=== PATIENT | male | born 1985 | race Caucasian/White ===

== ENCOUNTER 2017-07-10 10:49 | Emergency (ER) | payer OTHER ==
[~2017-07-10] VITALS: Ht 177.8 cm; Wt 105.0 kg
[~2017-07-10 10:49] MED LIST: CETI10TA84 PO
[2017-07-10 10:54] VITALS: TEMP 37.3; Ht 177.8 cm; Wt 105.0 kg
[2017-07-10] MEDS ORDERED: IBUPROFEN 600 MG TAB PO STA (11:01)
[2017-07-10] MEDS ORDERED: ALLERGY DROPS SL (11:12)
--- NOTE | 2017-07-10 11:29 | DIAGNOSTIC IMAGING REPORT ---
L SHOULDER MIN 2 VIEWS ROUTINE CLINICAL HISTORY: 31 years-old Male presenting with L shoulder pain, injury during softball. TECHNIQUE: Internal rotation, external rotation, Grashey views of the left shoulder were obtained. COMPARISON: 01/08/2008. FINDINGS: Glenohumeral and acromioclavicular joints congruent. An ossicle is noted superior to the acromioclavicular joint, which was not present in 2007, but appears well corticated and is not consistent with an acute fracture fragment. This may be result of prior injury. No widening of the AC joint. No acute fracture or malalignment. No advanced degenerative change. No radiographic soft tissue abnormality. IMPRESSION: No acute osseous injury. 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 Electronically signed by: Cory Hess M.D. 07/10/2017 11:28 AM Dictated Date/Time: 07/10/2017 11:27 AM
[2017-07-10 11:58] VITALS: BP 156/89; PULSE 72; O2SAT 99
--- NOTE | 2017-07-10 15:55 | EMERGENCY ROOM VISIT NOTE ---
History First contact with patient: 10:56 Chief Complaint: SHOULDER PAIN Stated Complaint: SHOULDER PAIN History of Present Illness The patient is a 31 year old male who presents to the Emergency Room with complaints of a left shoulder injury today playing softball. The patient reports that he was sliding into second base when he landed wrong. The patient reports that he felt 2 distinct pops in the shoulder. He is concerned that he dislocated and relocated the shoulder. The patient reports that he has had a prior history of clavicle fracture and AC separation. He does not remember which shoulder was which with these prior injuries of approximately 7-9 years ago. The patient currently rates his left shoulder discomfort a 3 out of 10. He did notice paresthesias, tingling and numbness of the left upper extremity for approximately 2 minutes after the injury. Sensations have now completely resolved. The patient is right-hand dominant. He denies any pain extending into the chest, back or neck. Review of Systems 10 system review was performed and was negative except for pertinent positives and negatives as indicated in history of present illness Past Medical/Surgical History Medical Problems: (1) No significant past medical history Surgical Problems: (1) No history of previous surgery Family History Unremarkable Social History Smoking Status: Never Smoker Alcohol Use: occasionally Marital Status: Occupation Status: employed Current/Historical Medications Scheduled [Allergy Drops], 1 DOSE SL DAILY Physical Exam Vital Signs Date Time Temp Pulse Resp B/P (MAP) Pulse Ox O2 Delivery O2 Flow Rate FiO2 07/10/17 11:58 72 14 156/89 99 07/10/17 10:54 37.3 82 20 138/83 96 Room Air Physical Exam CONSTITUTIONAL: Healthy and well nourished. Alert and oriented X 3 with positive affect. Patient does not appear in any acute distress. HEENT: Normocephalic, atraumatic. Pupils equal, round and reactive. NECK: Full active range of motion without discomfort. RESPIRATORY: Clear to auscultation bilaterally with no wheezing, crackles, rhonchi or stridor. Deep breathing does not cause any discomfort. CARDIOVASCULAR: Regular rate and rhythm with no murmurs, rubs or gallops. GASTROINTESTINAL: Bowel sounds present in all quadrants. Soft and nontender to palpation. MUSCULOSKELETAL: Examination of the left shoulder region does not show any obvious ecchymosis, soft tissue edema or abrasions. Gentle internal and external rotation does not cause any worsening discomfort. The patient has no tenderness to palpation over the sternoclavicular or acromioclavicular joints, clavicle or bicipital groove. No tenderness to palpation, soft tissue edema or ecchymosis over the biceps or triceps region. Equal handgrip bilaterally. Distal pulses are intact. INTEGUMENTARY: No rash or other significant dermatologic conditions noted. NEUROLOGIC: Left deltoid, hand and fingers are sensory intact. Medical Decision & Procedures ER Provider Diagnostic Interpretation: My interpretation of left shoulder x-rays does not show any dislocations, fractures or other concerning acute findings. Radiologist report is as follows: L SHOULDER MIN 2 VIEWS ROUTINE CLINICAL HISTORY: 31 years-old Male presenting with L shoulder pain, injury during softball. TECHNIQUE: Internal rotation, external rotation, Grashey views of the left shoulder were obtained. COMPARISON: 01/08/2008. FINDINGS: Glenohumeral and acromioclavicular joints congruent. An ossicle is noted superior to the acromioclavicular joint, which was not present in 2007, but appears well corticated and is not consistent with an acute fracture fragment. This may be result of prior injury. No widening of the AC joint. No acute fracture or malalignment. No advanced degenerative change. No radiographic soft tissue abnormality. IMPRESSION: No acute osseous injury. 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 Medications Administered Medications (Trade) Dose Ordered Sig/Wilbur Route Start Time Stop Time Status Last Admin Dose Admin Ibuprofen (Motrin Tab) 600 mg NOW STAT PO 07/10/17 11:01 07/10/17 11:04 DC 07/10/17 10:45 600 MG ED Course Patient history and physical exam were performed. Nurse's notes were reviewed. Vital signs were reviewed and were normal. The patient was administered ibuprofen for pain. X-rays of the left shoulder were normal. The patient was encouraged to intermittently apply ice to the shoulder. An arm sling was applied for immediate pain relief, however the patient was instructed to perform gentle range of motion exercises to prevent stiffness. The patient was instructed to avoid heavy labor until reevaluated by orthopedics. Ibuprofen and Tylenol in alternating fashion as needed for additional pain relief. The patient was provided a copy of his x-rays on disc to follow-up with orthopedics upon return home. The patient was happy with plan of care, voiced understanding of all discharge instructions, and rated his discomfort a 3 out of 10 at the conclusion of my exam. Medical Decision Patient does give a description for possible shoulder dislocation with spontaneous reduction. His x-rays are not showing any evidence for persistent dislocation, acromioclavicular separation or other acute bony injuries. The patient does not have any current neurovascular compromise. Medication Reconcilliation Current Medication List: was personally reviewed by me Blood Pressure Screening Patient's blood pressure: Normal blood pressure Impression Primary Impression: Injury of left shoulder Additional Impression: Sports injury Departure Information Referrals No Doctor, Assigned (PCP) Patient Instructions My [facility] Problem Qualifiers Primary Impression: Injury of left shoulder Encounter type: initial encounter Qualified Codes: S49.92XA - Unspecified injury of left shoulder and upper arm, initial encounter
== END 2017-07-10 12:02 | disposition home or self-care (01) ==
LOC: C.EDB 10:50 → C.EDD 12:02
DX: S49.92XA Unspecified injury of left shoulder and upper arm, initial encounter (principal); W19.XXXA Unspecified fall, initial encounter; Y93.64 Activity, baseball